=== PATIENT | female | born 1935 | race Caucasian/White ===

== ENCOUNTER → 2016-10-02 | Day surgery (SDC) | payer MEDICARE ==
[~2016-10-02] MED LIST: ATOR10 PO; B COTAB3 PO; BUPIVACAINE HCL PF 0.5% 10 ML VIAL ONE; BUPIVACAINE/EPINEPHRINE 0.25% 50 ML VIAL ONE; COQ10 PO; DIOV80TA4 PO; HYDR12.56 PO; LACTATED RINGER'S 1000 ML INJ 1,000 ML ONE; LEVO.125 PO; LIDOCAINE 1%/EPINEPHrine 1:100,000 SOLN 50 ML VIAL ONE; MIDAZOLAM HCL 2 MG/2 ML VIAL ONE; NEOMYCIN/POLYMYXIN/BACITRACIN OINT 15 GM TUBE ONE; ONDANSETRON HCL 4 MG/2 ML VIAL IV PUSH ONE; OXYC-360 PO; PROPOFOL 100 MG/10 ML INJ IV ONE; ROLACHW21 CHEW; SYNT112T PO; TAB-TAB PO; TIMO0.5S6 OU; VITA100017 PO; VITA400C28 PO
--- NOTE | 2016-10-02 10:45 | TN ---
cc: SANYD RECINOS M.D. DATE OF SURGERY 10/02/2016 PREOPERATIVE DIAGNOSIS Bilateral ankle masses, one on the right, two on the left. POSTOPERATIVE DIAGNOSIS Bilateral ankle masses, one on the right, two on the left. 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 PROCEDURE 1. Excision of medial ankle subcutaneous mass measuring 3 cm. 2. Removal of lateral subcutaneous mass measuring 3 cm. 3. Removal of right lateral subcutaneous mass 3 cm. ANESTHESIA General. SURGEON Dr. Recinos INDICATIONS The patient is a pleasant 81-year-old female who has these growing masses on her ankles, difficult for her to wear shoes because they are growing. They feel very soft and lipomatous. Plans were made for excision. PROCEDURE The patient was taken to the operating room, placed in supine position. After anesthesia both her ankles were prepped with Betadine. She is sedated. We anesthetize here with the Marcaine solution. First we direct our attention to the left side. Both areas had been previously marked. We make an incision overlying the apex of the mass, dissect circumferentially around to remove a lipomatous structure. We avoid the vessels. It is removed mostly by blunt dissection and electrocautery for small branching vessels. The medial end is excised and labeled as such. We close the deep layer with 3-0 Vicryl and the skin with 4-0 Vicryl. We then direct our attention to the lateral side. Similar incision is made after anesthetizing with Marcaine solution. The 3-cm lipomatous structure is removed by mostly blunt dissection and using electrocautery device for branching vessels that are quite small. This label is left lateral mass. This is then close similarly with a 3-0 Vicryl and a 4-0 Vicryl. We then our attention to the right side lateral aspect, anesthetize with Marcaine solution. This lipomatous structure enucleates out with blunt dissection, sharp dissection with the electrocautery device for small branching vessels. It is passed off the field. We then close the skin with a 4-0 Vicryl. Steri-Strips were applied. Sterile bandage was applied. The patient tolerated the procedure well, had no immediate postop complications. MD NESS Allen/KEITH /10:30 AM /10:39 AM
== END | disposition home or self-care (01) ==
LOC: ESDC 07:33
PROVIDERS: ATTEND Surgery
DX: D17.24 Benign lipomatous neoplasm of skin and subcutaneous tissue of left leg (principal); D17.23 Benign lipomatous neoplasm of skin and subcutaneous tissue of right leg
CPT/HCPCS: 00400; 27618; 27632; 88304; J2250; J2405; J3010; J7120